=== PATIENT | female | born 1965 | race Caucasian/White ===

== ENCOUNTER 2024-01-29 07:51 | Outpatient (AMB) | payer OTHER, SELFPAY ==
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
[2024-01-29 08:06] VITALS: BP 148/78; PULSE 97; RESP 16; O2SAT 99; BMI 29.0
== END 2024-01-29 08:47 | disposition home or self-care (01) ==
PROVIDERS: PCP Internal Medicine; Visit Provider Psychiatry & Neurology Neurology
DX: R41.89 Other symptoms and signs involving cognitive functions and awareness (principal); R47.89 Other speech disturbances; G47.10 Hypersomnia, unspecified; G47.00 Insomnia, unspecified
CPT/HCPCS: 99204

== ENCOUNTER → 2024-01-29 07:51 | Outpatient (BNVA) | payer OTHER, SELFPAY | PROVIDERS: PCP Internal Medicine; Visit Provider Psychiatry & Neurology Neurology ==

== ENCOUNTER → 2024-03-10 12:57 | Outpatient (REF) | payer OTHER, SELFPAY | LOC: HO.SL 12:57 | PROVIDERS: PCP Internal Medicine; Visit Provider Psychiatry & Neurology Neurology | DX: G47.33 Obstructive sleep apnea (adult) (pediatric) (principal); G47.10 Hypersomnia, unspecified; G47.00 Insomnia, unspecified | CPT/HCPCS: 95806 ==

== ENCOUNTER → 2024-03-10 13:06 | Outpatient (BNV) | payer OTHER, SELFPAY | PROVIDERS: PCP Internal Medicine; Visit Provider Psychiatry & Neurology Neurology | DX: G47.33 Obstructive sleep apnea (adult) (pediatric) (principal) | CPT/HCPCS: 95806 ==

== ENCOUNTER 2024-03-17 10:04 | Outpatient (REF) | payer OTHER, SELFPAY ==
--- NOTE | ~2024-03-17 | MR_ITS ---
MRI OF THE BRAIN WITHOUT IV CONTRAST INDICATION: Memory loss. Cognitive changes. COMPARISON: None available. TECHNIQUE: Multiplanar multisequence MR imaging of the brain was obtained without IV contrast. FINDINGS: There is no hydrocephalus, extra-axial surface collection, or herniation. There is mild chronic microangiopathy. The major flow voids at the skull base are preserved. There is no acute infarct on diffusion-weighted imaging. There is no intracranial hemorrhage on the gradient recalled echo acquisition. The midline structures are normal. The cerebellar tonsils are normally positioned. The cerebellum and brainstem are normal. The craniocervical junction is normal. Osseous marrow signal intensity is homogenous. The visualized soft tissues are unremarkable. MR/MR head/brain wo con IMPRESSION: No acute intracranial findings. No significant cerebral volume loss. There is mild chronic microangiopathy. Electronically signed by: Bereket Reynolds MD 04/15/2024 04:36 PM EDT
== END 2024-03-17 10:05 | disposition home or self-care (01) ==
LOC: HO.MRI 10:04
PROVIDERS: PCP Internal Medicine; Visit Provider Psychiatry & Neurology Neurology
DX: R41.89 Other symptoms and signs involving cognitive functions and awareness (principal)
CPT/HCPCS: 70551

== ENCOUNTER 2024-05-08 08:01 | Outpatient (AMB) | payer OTHER, SELFPAY ==
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
[2024-05-08 08:51] VITALS: BP 102/62; PULSE 91; RESP 16; O2SAT 98; BMI 29.0
== END 2024-05-08 09:09 | disposition home or self-care (01) ==
PROVIDERS: PCP Internal Medicine; Visit Provider Psychiatry & Neurology Neurology
DX: R41.89 Other symptoms and signs involving cognitive functions and awareness (principal); R47.89 Other speech disturbances; G47.33 Obstructive sleep apnea (adult) (pediatric)
CPT/HCPCS: 99214

== ENCOUNTER → 2024-05-08 08:01 | Outpatient (BNVA) | payer OTHER, SELFPAY | PROVIDERS: PCP Internal Medicine; Visit Provider Psychiatry & Neurology Neurology | DX: R41.89 Other symptoms and signs involving cognitive functions and awareness (principal); G47.10 Hypersomnia, unspecified; G47.00 Insomnia, unspecified; R47.89 Other speech disturbances ==

== ENCOUNTER 2024-06-02 13:22 | Outpatient (RCR) | payer OTHER, SELFPAY ==
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
== END 2024-07-09 11:00 | disposition home or self-care (01) ==
LOC: HO.SH 13:22
PROVIDERS: PCP Internal Medicine; Visit Provider Psychiatry & Neurology Neurology
DX: R47.89 Other speech disturbances (principal); R41.89 Other symptoms and signs involving cognitive functions and awareness
CPT/HCPCS: 92523

== ENCOUNTER 2024-11-12 07:19 | Outpatient (AMB) | payer OTHER, SELFPAY ==
--- OUTSIDE RECORDS SUMMARY | 2024-11-12 07:22 | XMS_ITS | Data Portability ---
Author Organization ARTHUR Puentes s [id number] Address [address] [place] [address] Care Team Providers Care Planner Chief Name Role Phone [facility] Primary Care Provi catarina Assessment No assessment recorded. Plan of Treatment Reminders Order Date Submit Date Provider Last Modified By Organization Details Last Modified Time Details Appointments None recorded. Lab None recorded. Referral None recorded. Procedures None recorded. Surgeries None recorded. Imaging None recorded. Medication Orders albuterol sulfate HFA 90 mcg/actuat ion aerosol inhaler 2022 023 [facility]acy #[id number], [address], [place], [address], 3 16:01:26 Zithromax Z-Xavier 250 mg tablet 2022 023 [facility] #[id number], [address], [place], [address], 3 16:01:26 Patient TargetsNo targets recorded. Patient Instructions Encounter Date Encounter Id Patient Instructions Last Modified By Organization Details Last Modified Time 08/14/2023 [id number] cough: care instructions Not available 08/14/2023 16:01:24 How can you care for yourself at home? Drink lots of water and other fluids. This helps thin the mucus and soothes a dry or sore throat. Honey or lemon juice in hot water or tea may ease a dry cough. Take cough medicine as directed by your doctor. Prop up your head on pillows to help you breathe and ease a dry cough. Try cough drops or hard candy to soothe a dry or sore throat. Do not smoke. Avoid second hand smoke. If you need help quitting, talk to your doctor about stop-smoking programs and medicines. These can increase your chances of quitting for good. When should you call for help? Call anytime you think you may need emergency care. For example, call if: You have severe trouble breathing. Call your doctor now or seek immediate medical care if: You cough up blood. You have new or worse trouble breathing. You have a new or higher fever. You have a new rash. Not available 08/14/2023 16:09:12 Reason for Referral None Reported. Problems Name Problem SNOMED Code Status Onset Date Resolution Date Notes Provider Name and Address Organization Details Recorded Time Diabetes mellitus 17757422 Active 2022 BERENICE rincon, PA - [facility] 14:05:26 Hypercholestero lemia 09653253 Active 2022 BERENICE rincon, PA - [facility] 14:05:32 Problem Notes None recorded. Procedures Surgical History Date Name Laterality Status Provider Name and Address Organization Details Recorded Time hysterectomy completed BERENICE QUAN PA - [facility] 08/14/2023 14:06:22 cholecystectomy completed BERENICE QUAN PA - [facility] 08/14/2023 14:06:30 procedure on liver completed BERENICE QUAN PA - [facility] 08/14/2023 14:06:36 Imaging Results None recorded. Procedure Notes None recorded. Medical Equipment None Reported. Allergies No known drug allergies Medications Name Sig Start Date Stop Date Status Note LastModified by Organization Details LastModified Time atorvastati n 10 mg tablet active Not Available Not Available Not Available azithromyci n 250 mg tablet TAKE 2 TABLETS BY MOUTH TODAY, THEN TAKE 1 TABLET DAILY FOR 4 DAYS DIRECTED active Not Available Not Available No t Available bisacodyl 5 mg tablet,nain yed release TAKE 2 TABS AT 6PM DIRECTED. 08/14 completed Not Available Not Available Not Available albuterol sulfate HFA 90 mcg/actuati on aerosol inhaler INHALE 2 PUFFS INTO THE LUNGS EVERY 4 HOURS NEEDED FOR 30 DAYS active Not Available Not Available No t Available sertraline 50 mg tablet active Not Available Not Available Not Available GaviLyte-G 236 gram-22.74 gram-6.74 gram-5.86 gram oral solution PLEASE SEE ATTACHED FOR DETAILED DIRECTION S 08/14 completed Not Available Not Available Not Available OneTouch Verio test strips USE TO TEST SUGAR TWICE A DAY active Not Available Not Available No t Available Jardiance 10 mg tablet TAKE 1 TABLET BY MOUTH EVERY DAY IN THE MORNING active Not Available Not Available No t Available Trulicity 1.5 mg/0.5 mL subcutaneou s pen injector INJECT 1.5 MG INTO THE SKIN ONCE A WEEK. active Not Available Not Available No t Available OneTouch Delica Plus Lancet 33 gauge USE TO TEST SUGAR TWICE A DAY active Not Available Not Available No t Available Vitals Date Recorded Body height Body mass index (BMI) Body weight Pain severity - 0-10 verbal numeric rating [Score] - Reported Respiratory rate Body temperature Oxygen saturation Oxygen saturation in Arterial blood by Pulse oximetry Heart rate Systolic blood pressure Diastolic blood pressure Provider Name and Address Organization Details Last Updated DateTime 3 152.4 cm 27.3 kg/m2 24747.9 3 g 0 18 /min 98.1 [degF] 97 % 97 % 104 /min 115 mm[Hg] 81 mm[Hg] BERENICE QUAN PA - [facility] 14:08:36 Social History Question Answer Notes LastModified by Organizat ion Details LastModified Time Tobacco Smoking Status Never Smoker BERENICE rincon PA - [facility] 08/14/2023 14:06:06 What Is Your Level Of Alcohol Consumption? Occasional [email or web address] Information not available 08/14/2023 Do You Use Any Illicit Or Recreational Drugs? No Information not available 08/14/2023 Have You Recently Traveled Abroad? No [email or web address] Information not available 08/14/2023 Do You Or Have You Ever Used Any Other Forms Of Tobacco Or Nicotine? No [email or web address] Information not available 08/14/2023 Sex: Unknown Functional Status None recorded. Mental Status None recorded. Family History Relationship Description Onset Age of this Age Resolved Age Notes LastModified by Organization Details LastModified Time Father No current problems or disability [email or web address] Not available 08/14 14:05:45 Mother No current problems or disability [email or web address] Not available 08/14 14:05:45 Medical History No medical history recorded. Gynecological History Statement/Question Response Date of LMP Obstetrics History GPAL:G 0 P 0 0 0 0 Past Encounters Encounter ID Performer Location Encounter Start Date Encounter Closed Date Diagnosis/Indication Diagnosis SNOMED-CT Code Diagnosis ICD10 Code Diagnosis Note [id number] [place] [id number] [place] [address] 08/14/2023 12:52:04 08/14/2023 16:04:25 Acute bronchitis 49409919 J20.9 Health Concerns Section Related Observation LastModified by Organization Detai ls LastModified Time None Recorded Concern Status LastModified by Organization Details LastModified Time None Recorded Advance Directives Directive None Recorded Payers Encounter Date Sequence Insurance Name Policy Number Policy Greene Covered Member ID Greene Member ID Guarantor Name 08/14/2023 1 [facility] [id number] Carol Juarez [id number] Carol Juarez Notes Date Note Type Note Provider Name and Address Organization Details Recorded Time 3 text/html CoughReported bypatient.source of patient informationInformation obtained from patient; Patient arrived at Urgent Care ambulatory Quality:dry; symptoms worse with lying down Severity:worsening; moderate Duration:8 days Timing:worsening; gradual Context:family members ill with similar symptoms; Patient denies vaping; non-smoker Modifying Factors:Cough Suppressant Associated Symptoms:no fever; no chills; no chest pain; no heartburn; no nausea; no vomiting; no edema; no agitation; no wheezing; no post nasal drip Presents with cough and x1 week chest cold--awful cough-productive -taking cough drops only-did just get most recent covid shot x2 weeks ago--home covid test negative. unsure of exposure to covid or flu Dulce Maria Ennis NP [address] [place], [address], PA - [facility] 08/14/2023 16:09:37 OBGyn Episode No OBEpisode recorded.
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
[2024-11-12 07:35] VITALS: BP 124/78; PULSE 90; O2SAT 100; BMI 29.3
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
== END 2024-11-12 07:59 | disposition home or self-care (01) ==
LOC: HO.HSMS 07:20
PROVIDERS: PCP Internal Medicine; Visit Provider Psychiatry & Neurology Neurology
DX: R41.89 Other symptoms and signs involving cognitive functions and awareness (principal); R47.89 Other speech disturbances; G47.33 Obstructive sleep apnea (adult) (pediatric)
CPT/HCPCS: 99214

== ENCOUNTER 2025-01-15 07:52 | Outpatient (AMB) | payer OTHER, SELFPAY ==
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
--- OUTSIDE RECORDS SUMMARY | 2025-01-15 07:55 | XMS_ITS | Data Portability ---
Author Organization [facility] [address] Address [address] [place] [address] Care Team Providers Care Datapower Consultant Name Role Phone [facility] Primary Care Provi catarina Assessment No assessment recorded. Plan of Treatment Reminders Order Date Submit Date Provider Last Modified By Organization Details Last Modified Time Details Appointments None recorded. Lab None recorded. Referral None recorded. Procedures None recorded. Surgeries None recorded. Imaging None recorded. Medication Orders albuterol sulfate HFA 90 mcg/actuat ion aerosol inhaler 2022 023 [id number], [address], [place], [address], 3 16:01:26 Zithromax Z-Xavier 250 mg tablet 2022 023 [facility][id number], [address], [place], [address], 3 16:01:26 Patient TargetsNo targets recorded. Patient Instructions Encounter Date Encounter Id Patient Instructions Last Modified By Organization Details Last Modified Time 08/14/2023 [id number] cough: care instructions Not available 08/14/2023 16:01:24 [...] Address Organization Details Recorded Time Diabetes mellitus 01130180 Active 2022 BERENICE rincon, [place] - [facility] 14:05:26 Hypercholestero lemia 22120837 Active 2022 B[facility]ICE [facility]con, [facility] - [facility] [...] height Body mass index (BMI) Body weight Respiratory rate Body temperature Oxygen saturation Oxygen saturation in Arterial blood by Pulse oximetry Heart rate Systolic blood pressure Diastolic blood pressure Provider Name and Address Organization Details Last Updated DateTime 3 152.4 cm 27.3 kg/m2 55184.9 3 g 18 /min 98.1 [degF] 97 % 97 % 104 /min 115 mm[Hg] 81 mm[Hg] BERENICE QUAN [facility] 14:08:36 Social History Question Answer Notes LastModified by [employer] Details LastModified Time Tobacco Smoking Status Never Smoker BERENICE rincon PA - [facility] 08/14/2023 14:06:06 Have You Recently Traveled Abroad? No [email or web address] Information not available 08/14/2023 Sex: Unknown Functional Status Question Answer Note LastModified by [employer] Details LastModified Time Do you use any illicit or recreational drugs? No [email or web address] Information not available 08/14/2023 Do you or have you ever used any other forms of tobacco or nicotine? No [email or web address] Information not available 08/14/2023 What is your level of alcohol consumption? Occasional [email or web address] Information not available 08/14/2023 Mental Status None recorded. Family History Relationship Description Onset Age of this Age Resolved Age Notes LastModified by Organization Details LastModified Time Father No current problems or disability [email or web address] Not available 08/14 14:05:45 Mother No current problems or disability Not available 08/14 14:05:45 Medical History No medical history recorded. Gynecological History Statement/Question Response Date of LMP Obstetrics History GPAL:G 0 P 0 0 0 0 Past Encounters Encounter ID Performer Location Encounter Start Date Encounter Closed Date Diagnosis/Indication Diagnosis SNOMED-CT Code Diagnosis ICD10 Code Diagnosis Note [id number] [place] [address] [place] [address] 08/14/2023 12:52:04 08/14/2023 16:04:25 Acute bronchitis 20673206 J20.9 Health Concerns Section Related Observation LastModified by Organization Detai ls LastModified Time None Recorded Concern Status LastModified by Organization Details LastModified Time None Recorded Advance Directives Directive None Recorded Payers Insurance Date Sequence Insurance Name Policy Number Policy Greene Covered Member ID Greene Member ID Guarantor Name 08/14/2023 1 BRADEN [id number] Carol Juarez [id number] Carol Juarez Notes Date Note Type [...] or flu Dulce Maria Ennis NP [address] [place], [address], [place] - [facility] 08/14/2023 16:09:37 OBGyn Episode No OBEpisode recorded.
[2025-01-15 07:59] VITALS: BP 124/82; PULSE 94; O2SAT 97; BMI 28.9
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
== END 2025-01-15 08:42 | disposition home or self-care (01) ==
LOC: HO.HSMS 07:52
PROVIDERS: PCP Internal Medicine; Visit Provider Physician Assistant Medical
DX: G47.33 Obstructive sleep apnea (adult) (pediatric) (principal); R41.89 Other symptoms and signs involving cognitive functions and awareness; R47.89 Other speech disturbances; G47.10 Hypersomnia, unspecified; R53.83 Other fatigue; G47.9 Sleep disorder, unspecified
CPT/HCPCS: 99214

== ENCOUNTER → 2025-01-15 07:52 | Outpatient (BNVA) | payer OTHER, SELFPAY | PROVIDERS: PCP Internal Medicine; Visit Provider Physician Assistant Medical | DX: R41.89 Other symptoms and signs involving cognitive functions and awareness (principal); G47.10 Hypersomnia, unspecified; G47.00 Insomnia, unspecified; R47.89 Other speech disturbances; G47.33 Obstructive sleep apnea (adult) (pediatric) ==

== ENCOUNTER 2025-05-01 09:17 | Outpatient (AMB) | payer OTHER, SELFPAY ==
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
[2025-05-01 09:34] VITALS: BP 128/76; PULSE 101; O2SAT 96; BMI 28.6
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
--- OUTSIDE RECORDS SUMMARY | 2025-05-01 10:01 | XMS_ITS ---
Author Name [place] [facility] Organization Unknown Care Team Organization Name Specialty Phone Email Start Date End Da te [facility] Delvin Torres Primary Care 01/01/2023 04/14/20 [facility] Luisa Villeda Primary Care 07/04/202203/27
== END 2025-05-01 10:13 | disposition home or self-care (01) ==
LOC: HO.HSMS 09:17
PROVIDERS: PCP Internal Medicine; Visit Provider Physician Assistant Medical
DX: G47.33 Obstructive sleep apnea (adult) (pediatric) (principal); R41.89 Other symptoms and signs involving cognitive functions and awareness; R47.89 Other speech disturbances; G47.10 Hypersomnia, unspecified; R53.83 Other fatigue; G47.9 Sleep disorder, unspecified
CPT/HCPCS: 99214

== ENCOUNTER → 2025-05-01 09:17 | Outpatient (BNVA) | payer OTHER, SELFPAY | PROVIDERS: PCP Internal Medicine; Visit Provider Physician Assistant Medical | DX: G47.33 Obstructive sleep apnea (adult) (pediatric) (principal); Z99.89 Dependence on other enabling machines and devices; R47.89 Other speech disturbances; R41.89 Other symptoms and signs involving cognitive functions and awareness; G47.10 Hypersomnia, unspecified; R53.83 Other fatigue; Z13.89 Encounter for screening for other disorder ==